=== PATIENT | female | born 1995 | race Caucasian/White ===

== ENCOUNTER 2021-02-19 21:22 | Observation (INO) ==
[2021-02-19] MEDS ORDERED: AMPICILLIN/SULBACTAM SOD 3,000 MG in 0.9 % SODIUM CHLORIDE 100 ML IV STA (23:02)
[2021-02-19] MEDS ORDERED: SODIUM CHLORIDE 0.9% 1000ML 1,000 ML IV SCH (23:15)
[2021-02-19 23:20] LABS: Basophils # (auto) 0.01 K/uL (0-0.2); Basophils % (auto) 0.1 %; Eosinophils # (auto) 0.18 K/uL (0-0.5); Eosinophils % (auto) 1.5 %; Hematocrit (blood only) 40.7 % (37-47); Hemoglobin 14.1 g/dL (12.0-16.0); Immature Granulocytes # (auto) 0.02 K/uL (0.00-0.02); Immature Granulocytes % (auto) 0.2 %; Lymphocytes # (auto) 2.15 K/uL (1.2-3.4); Mean Corpuscular Hemoglobin 32.3 pg (25-34); Mean Corpuscular Hgb Conc 34.6 g/dL (32-36); Mean Corpuscular Volume 93.3 fL (80-100); Mean Platelet Volume 10.2 fL (7.4-10.4); Monocytes # (auto) 0.98 K/uL (0.11-0.59); Monocytes % (auto) 8.2 %; Platelet Count 287 K/uL (130-400); RDW Coefficient of Variation 12.6 % (11.5-14.5); RDW Standard Deviation 42.8 fL (36.4-46.3); Red Blood Count 4.36 M/uL (4.2-5.4); White Blood Count 11.94 K/uL (4.8-10.8)
[2021-02-19 23:37] LABS: Alanine Aminotransferase 21 U/L (12-78); Albumin Level 3.9 gm/dl (3.4-5.0); Aspartate Aminotransferase 19 U/L (15-37); BUN Creatinine Ratio 14.8 (10-20); Blood Urea Nitrogen 7 mg/dl (7-18); Calcium 8.5 mg/dl (8.5-10.1); Carbon Dioxide 28 mmol/L (21-32); Chloride 106 mmol/L (98-107); Creatinine Clr Calc Pharmacy 174.5 ml/min; Est GFR (African American) > 150.0 ml/min; Est GFR (Non-African American) 137.3 ml/min; Glucose 77 mg/dl (70-99); Potassium 3.4 mmol/L (3.5-5.1); Sodium 138 mmol/L (136-145)
[2021-02-19 23:40] LABS: Albumin Globulin Ratio 1.1 (0.9-2); Alkaline Phosphatase 66 U/L (45-117); Bilirubin,Total 0.6 mg/dl (0.2-1); Globulin 3.6 gm/dl (2.5-4.0); Total Protein 7.5 gm/dl (6.4-8.2)
[2021-02-19 23:53] LABS: Pregnancy Test, Serum Negative (Negative)
[2021-02-20] MEDS ORDERED: KETOROLAC TROMETHAMINE 15 MG/ML VIAL IV STA (00:02)
[2021-02-20] MEDS ORDERED: AMPICILLIN/SULBACTAM SOD 3,000 MG in 0.9 % SODIUM CHLORIDE 100 ML IV SCH (00:31)
--- NOTE | 2021-02-20 00:35 | History & Physical Report ---
Date of Service February 20, 2021 Assessment & Plan (1) Dog bite of extremity: Plan: 25yo female with no significant past medical or surgical history presenting with a dog bite to the left hand that occurred yesterday. She has worsening swelling, redness with draining pus. No systemic signs or symptoms of infection. Patient afebrile, HD stable, nontoxic in appearance -Observation to medical -Follow cultures -Paul area of redness daily -Unasyn 3gm IV q 6 hours -Tylenol PRN -If patient fails to improve will consider surgical consultation Plan: F/E/N - Heplock. Electrolytes WNL. Regular diet as tolerated Ppx - Low risk for DVT Code - Full Dispo - Observation to medical History of Present Illness Chief Complaint: Dog Bite Primary Care Provider: NO PCP Merle Mijares is a 25yo female with no significant past medical or surgical history presenting with bite on her left hand from her dog. Patient's dog has been ill for the last 3-4 days - hasn't been eating, unable to walk. Patient was examining her dog and pressed on his abdomen and the dog snapped at her and bit her in the left hand. The dog is UTD with all injections and is otherwise healthy. Patient had worsening redness and swelling of her left hand which prompted her to come to the ER. She denies fever, chills, nausea, vomiting, CP, SOB, malaise. No additional complaints at this time. Pus was expressed from the wound on the left hand by JOSE Wilkes in the ER. ER Course: Unasyn, Ketorlac, NSS Allergies Allergy/AdvReac Type Severity Reaction Status Date / Time No Known Allergies Allergy Unverified 02/20/21 00:49 Home Medications Medication Instructions Recorded Confirmed Type ibuprofen 200 mg tablet 600 mg PO Q6H PRN 02/20/21 02/20/21 History multivitamin 1 tab PO DAILY 02/20/21 02/20/21 History Past Med/Surg History Medical History (Updated 02/20/21 @ 01:28 by Danielle Meek DO) No significant past medical history Surgical History (Updated 02/20/21 @ 01:23 by Danielle Meek DO) History of umbilical hernia repair Family History (Updated 02/20/21 @ 01:24 by Danielle Meek DO) Other Cancer Diabetes Social History Smoking Status: Never smoker Preferred Language: Albanian Feels Safe at Home: Yes Review of Systems Review of Systems: All systems reviewed & are unremarkable except as noted in HPI & below Patient feels cold while in the ER Physical Exam Physical Exam: General: patient resting comfortably, NAD, non-toxic in appearance, AA&O x 4 Skin: warm, dry, no rash HEENT: NC/AT, PERRL, EOMI, anicteric sclera, conjunctiva without injection, external ear normal to inspection and nontender, nares patent, moist mucus membranes, dentition intact, no oropharyngeal lesions, neck supple, trachea midline, no LAD, no thyromegaly, no JVD Heart: +S1/S2, regular, no m/r/g Lungs: equal air entry bilaterally, no rales/rhonchi/wheezes Abd: +BS, soft, NT/ND, no masses/organomegaly/ascites Ext: warm, 2+ pulses in UE/LE bilaterally, no clubbing/cyanosis or edema. Left hand with small wound at area of MCP with small amount of pus draining, redness and warmth of dorsum of hand to wrist. No lymphangitic streaking. No crepitus, bullae. Limited mobility of hand due to swelling. Neuro: nonfocal, patient AA&O x 4, speech intact, no facial droop, moving all extremities on command with equal strength 5/5 Results & Data Results & Data ([facility]) Vital Signs (Past 12 Hours) Vital Signs Temp Pulse Pulse Resp BP BP Pulse Ox 02/19/21 22:52 97 H 16 129/76 98 02/19/21 21:31 36.8 C 108 H 18 127/78 99 Laboratory Results Laboratory Results WBC 11.94 K/uL (4.8-10.8) H 02/19/21 23:12 RBC 4.36 M/uL (4.2-5.4) 02/19/21 23:12 Hgb 14.1 g/dL (12.0-16.0) 02/19/21 23:12 Hct 40.7 % (37-47) 02/19/21 23:12 MCV 93.3 fL (80-100) 02/19/21 23:12 MCH 32.3 pg (25-34) 02/19/21 23:12 MCHC 34.6 g/dL (32-36) 02/19/21 23:12 RDW Std Deviation 42.8 fL (36.4-46.3) 02/19/21 23:12 RDW Coeff of Antione 12.6 % (11.5-14.5) 02/19/21 23:12 Plt Count 287 K/uL (130-400) 02/19/21 23:12 MPV 10.2 fL (7.4-10.4) 02/19/21 23:12 Immature Gran % (Auto) 0.2 % 02/19/21 23:12 Neut % (Auto) 72.0 % 02/19/21 23:12 Lymph % (Auto) 18.0 % 02/19/21 23:12 Adams % (Auto) 8.2 % 02/19/21 23:12 Eos % (Auto) 1.5 % 02/19/21 23:12 Baso % (Auto) 0.1 % 02/19/21 23:12 Neut # (Auto) 8.60 K/uL (1.4-6.5) H 02/19/21 23:12 Lymph # (Auto) 2.15 K/uL (1.2-3.4) 02/19/21 23:12 Adams # (Auto) 0.98 K/uL (0.11-0.59) H 02/19/21 23:12 Eos # (Auto) 0.18 K/uL (0-0.5) 02/19/21 23:12 Baso # (Auto) 0.01 K/uL (0-0.2) 02/19/21 23:12 Immature Gran # (Auto) 0.02 K/uL (0.00-0.02) 02/19/21 23:12 Sodium 138 mmol/L (136-145) 02/19/21 23:12 Potassium 3.4 mmol/L (3.5-5.1) L 02/19/21 23:12 Chloride 106 mmol/L (98-107) 02/19/21 23:12 Carbon Dioxide 28 mmol/L (21-32) 02/19/21 23:12 Anion Gap 4.0 (3-11) 02/19/21 23:12 BUN 7 mg/dl (7-18) 02/19/21 23:12 Creatinine 0.46 mg/dl (0.6-1.2) L 02/19/21 23:12 Est Cr Clr Drug Dosing 174.5 ml/min 02/19/21 23:12 Est GFR ( Amer) > 150.0 ml/min 02/19/21 23:12 Est GFR (Non-Af Amer) 137.3 ml/min 02/19/21 23:12 BUN/Creatinine Ratio 14.8 (10-20) 02/19/21 23:12 Glucose 77 mg/dl (70-99) 02/19/21 23:12 Calcium 8.5 mg/dl (8.5-10.1) 02/19/21 23:12 Total Bilirubin 0.6 mg/dl (0.2-1) 02/19/21 23:12 AST 19 U/L (15-37) 02/19/21 23:12 ALT 21 U/L (12-78) 02/19/21 23:12 Alkaline Phosphatase 66 U/L (45-117) 02/19/21 23:12 Total Protein 7.5 gm/dl (6.4-8.2) 02/19/21 23:12 Albumin 3.9 gm/dl (3.4-5.0) 02/19/21 23:12 Globulin 3.6 gm/dl (2.5-4.0) 02/19/21 23:12 Albumin/Globulin Ratio 1.1 (0.9-2) 02/19/21 23:12 HCG, Qual Negative (Negative) 02/19/21 23:12 COVID-19 Eval Order Covid19 at [facility] 02/20/21 00:03 Code Status & VTE Plan VTE Prophylaxis Plan VTE Prophylaxis will be ordered: No PG Care Time/CCT Total # of Minutes Spent Total Time Spent with Patient: Total time spent is greater than 50% in coordination of care (as documented) at patient's floor/unit and/or counseling patient: Coding Level of Care Code 38479 Initial Inpt Care Lvl 2 Diagnoses Dog bite of extremity
--- NOTE | 2021-02-20 01:48 | Emergency Department Note ---
History of Present Illness General Chief complaint: Animal Bite Stated complaint: INFECTED DOG BITE Time Seen by Provider: 02/19/21 22:56 History of Present Illness Maximum Pain Intensity: 7 This 25 yo presents to the ER complaining of dog bite of hand yesterday Location: Hand Quality: Throbbing and red Severity: Moderate Duration: Yesterday Timing: Yesterday Context: Symptoms got worse and patient came in Modifying factors: better with rest; worse with activity Tetanus is current. Patient's own dog bit her. Rabies vaccine is current. Patient states it is painful for move her second and third fingers. The redness is spread. Patient denies fevers, flulike illness, vomiting, diarrhea. Home Medications Medication Instructions Recorded Confirmed Type ibuprofen 200 mg tablet 600 mg PO Q6H PRN 02/20/21 02/20/21 History multivitamin 1 tab PO DAILY 02/20/21 02/20/21 History Allergies Allergy/AdvReac Type Severity Reaction Status Date / Time No Known Allergies Allergy Unverified 02/20/21 00:49 Past Med/Surg History Medical History No significant past medical history Surgical History History of umbilical hernia repair Family History Other Cancer Diabetes Social History Smoking Status: Never smoker Preferred Language: Polish Feels Safe at Home: Yes Review of Systems A total of 10 systems reviewed and were otherwise negative Physical Exam Vital Signs Vital Signs - 24 hr 02/19/21 21:31 02/19/21 22:52 Temperature 36.8 C Temperature Source Temporal Artery Scan Pulse Rate 108 H Pulse Rate [Finger] 97 H Respiratory Rate 18 16 Respiratory Effort / Characteristics Non-Labored Spontaneous Respiratory Depth Normal Normal Respiratory Pattern Regular Blood Pressure 127/78 Blood Pressure [Right Arm] 129/76 Blood Pressure Mean 94 Blood Pressure Mean [Right Arm] 93 Blood Pressure Position Sitting Pulse Oximetry 99 98 Oxygen Delivery Method Room Air Room Air Sepsis Recent Fever Within 48 Hours No Sepsis New/Unexplained Change in Mental Status N/A Sepsis Action Taken by Nursing No Action Required VITALS: Vitals are noted on the nurse's note and reviewed by myself. Vital signs stable. GENERAL: Pleasant female, in no acute distress, nondiaphoretic, well-developed well-nourished. SKIN: Capillary reflex less than 2 seconds. Left hand with dog bite present with draining purulent material with surrounding erythema. HEENT: Normocephalic. PERRLA. EOMI. Nares patent. Mucous membranes moist. Neck is supple without nuchal rigidity. HEART: Regular rate and rhythm without murmurs gallops or rubs. LUNGS: Clear to auscultation bilaterally without wheezes, rales or rhonchi. No retractions or accessory muscle use. ABDOMEN: Positive bowel sounds x 4. Normal tympanic percussion. Soft, nontender, without masses or organomegaly. Haskins sign negative. No guarding or rebound tenderness. MUSCULOSKELETAL: No gross musculoskeletal defects. Left hand tender to palpation over the dorsal aspect and second and third fingers. Patient has pain with full flexion extension of these fingers. All the fingers are nontender to palpation. No lymphangitis. Wound culture taken and sent. NEURO: Patient was alert and oriented to person place and time. Normal sensation to light and sharp touch. No focal neurological deficits. Course Administered Medications Discontinued Medications Sodium Chloride (Nss 1000ml) 1,000 mls @ 999 mls/hr IV .Q1H1M MILAGROS Stop: 02/20/21 00:15 Last Admin: 02/19/21 23:48 Dose: 999 mls/hr Documented by: [id number] Ampicillin Sodium/Sulbactam Sodium 3,000 mg/ Sodium Chloride 108 mls @ 200 mls/hr IV NOW STA Stop: 02/19/21 23:34 Last Infusion: 02/20/21 00:35 Dose: 0 mls/hr Documented by: [id number] Admin: 02/19/21 23:48 Dose: 200 mls/hr Documented by: [id number] Ketorolac Tromethamine (Ketorolac Tromethamine 15 Mg/Ml Vial) 10 mg IV NOW STA Stop: 02/20/21 00:03 Last Admin: 02/20/21 00:11 Dose: 10 mg Documented by: [id number] Medical Decision Making Medical Records Attestation: I reviewed the patient's medical records. Home Medications Current Medication List: was personally reviewed by me Laboratory Data Attestation: I reviewed the patient's lab results. Result diagrams: 02/19/21 23:12 02/19/21 23:12 Lab Results 02/19/21 02/19/21 02/19/21 Range/Units 23:12 23:12 23:12 WBC 11.94 H (4.8-10.8) K/uL RBC 4.36 (4.2-5.4) M/uL Hgb 14.1 (12.0-16.0) g/dL Hct 40.7 (37-47) % MCV 93.3 (80-100) fL MCH 32.3 (25-34) pg MCHC 34.6 (32-36) g/dL RDW Std Deviation 42.8 (36.4-46.3) fL RDW Coeff of Antione 12.6 (11.5-14.5) % Plt Count 287 (130-400) K/uL MPV 10.2 (7.4-10.4) fL Immature Gran % (Auto) 0.2 % Neut % (Auto) 72.0 % Lymph % (Auto) 18.0 % [place] % (Auto) 8.2 % Eos % (Auto) 1.5 % Baso % (Auto) 0.1 % Neut # (Auto) 8.60 H (1.4-6.5) K/uL Lymph # (Auto) 2.15 (1.2-3.4) K/uL [place] # (Auto) 0.98 H (0.11-0.59) K/uL Eos # (Auto) 0.18 (0-0.5) K/uL Baso # (Auto) 0.01 (0-0.2) K/uL Immature Gran # (Auto) 0.02 (0.00-0.02) K/uL Sodium 138 (136-145) mmol/L Potassium 3.4 L (3.5-5.1) mmol/L Chloride 106 (98-107) mmol/L Carbon Dioxide 28 (21-32) mmol/L Anion Gap 4.0 (3-11) BUN 7 (7-18) mg/dl Creatinine 0.46 L (0.6-1.2) mg/dl Est Cr Clr Drug Dosing 174.5 ml/min Est GFR ( Amer) > 150.0 ml/min Est GFR (Non-Af Amer) 137.3 ml/min BUN/Creatinine Ratio 14.8 (10-20) Glucose 77 (70-99) mg/dl Calcium 8.5 (8.5-10.1) mg/dl Total Bilirubin 0.6 (0.2-1) mg/dl AST 19 (15-37) U/L ALT 21 (12-78) U/L Alkaline Phosphatase 66 (45-117) U/L Total Protein 7.5 (6.4-8.2) gm/dl Albumin 3.9 (3.4-5.0) gm/dl Globulin 3.6 (2.5-4.0) gm/dl Albumin/Globulin Ratio 1.1 (0.9-2) HCG, Qual Negative (Negative) COVID-19 Eval Order 02/20/21 Range/Units 00:03 WBC (4.8-10.8) K/uL RBC (4.2-5.4) M/uL Hgb (12.0-16.0) g/dL Hct (37-47) % MCV (80-100) fL MCH (25-34) pg MCHC (32-36) g/dL RDW Std Deviation (36.4-46.3) fL RDW Coeff of Anitone (11.5-14.5) % Plt Count (130-400) K/uL MPV (7.4-10.4) fL Immature Gran % (Auto) % Neut % (Auto) % Lymph % (Auto) % [place] % (Auto) % Eos % (Auto) % Baso % (Auto) % Neut # (Auto) (1.4-6.5) K/uL Lymph # (Auto) (1.2-3.4) K/uL [place] # (Auto) (0.11-0.59) K/uL Eos # (Auto) (0-0.5) K/uL Baso # (Auto) (0-0.2) K/uL Immature Gran # (Auto) (0.00-0.02) K/uL Sodium (136-145) mmol/L Potassium (3.5-5.1) mmol/L Chloride (98-107) mmol/L Carbon Dioxide (21-32) mmol/L Anion Gap (3-11) BUN (7-18) mg/dl Creatinine (0.6-1.2) mg/dl Est Cr Clr Drug Dosing ml/min Est GFR ( Amer) ml/min Est GFR (Non-Af Amer) ml/min BUN/Creatinine Ratio (10-20) Glucose (70-99) mg/dl Calcium (8.5-10.1) mg/dl Total Bilirubin (0.2-1) mg/dl AST (15-37) U/L ALT (12-78) U/L Alkaline Phosphatase (45-117) U/L Total Protein (6.4-8.2) gm/dl Albumin (3.4-5.0) gm/dl Globulin (2.5-4.0) gm/dl Albumin/Globulin Ratio (0.9-2) HCG, Qual (Negative) COVID-19 Eval Order Covid19 at [facility] Imaging Data Attestation: I personally reviewed and interpreted this imaging study as follows: MDM Narrative Prior records reviewed and summarized as above. Triage Nursing notes reviewed. Additional history obtained from friend. The patient's history was concerning for swelling and redness of the skin. Differential diagnosis: Etiologies such as infected dog bite, cellulitis, abscess, MRSA infection, DVT, necrotizing fasciitis, dermatitis, drug eruption, as well as others were entertained.. Physical examination: The physical examination was consistent with infected dog bite ER treatment provided: Unasyn, Toradol, IV fluids, wound culture sent On reassessment the patient felt better. Diagnostics interpreted by me: The labs revealed wound culture pending. Leukocytosis Imaging studies: Hand x-ray with no acute fracture, dislocation or effusion per my interpretation Consultation: A consultation was placed with the hospitalist. The case was discussed and diagnostics were reviewed. The patient was evaluated in the ER for further treatment. This appears to be infected dog bite. This is gotten much worse. There is pus draining. Patient start IV antibiotics. Medicine was consulted. She will be evaluated for admission. By the evaluation outlined above emergent etiologies such as necrotizing fasciitis, DVT, as well as others were deemed relatively unlikely. The pt informed about the findings as listed above. All questions were answered and pleased with the treatment. The chart was completed utilizing [employer] voice recognition software. Grammatical errors, random word insertions, pronoun errors, and incomplete s entences are an occassional consequence of this system due to software limitations, ambient noise, and hardware issues. Any formal questions or concerns about the content, text, or information contained within the body of this dictation should be directly addressed to the physician volunteer services assistant for cl arification. Impression & Plan Infected dog bite of hand Discharge Plan Visit Data Chief Complaint: Animal Bite Stated Complaint: INFECTED DOG BITE ED Provider: Glenroy Guzman ED Midlevel Provider: Iva Wilkes Discharge Problem: Infected dog bite of hand Patient Disposition: Admitted As Inpatient Condition: Good Forms Stand Alone Forms: [facility] Matchbook Prescriptions Prescriptions: No Action multivitamin Tablet 1 tab PO DAILY RF: 0 ibuprofen 200 mg Tablet 600 mg PO Q6H PRN (Reason: Pain) RF: 0 Referrals Referrals: PCP,NO [Primary Care Provider] -
[2021-02-20] MEDS ORDERED: ACETAMINOPHEN 325 MG TAB ONE (02:55)
[2021-02-20] MEDS ORDERED: KETOROLAC TROMETHAMINE 15 MG/ML VIAL IV ONE (03:24)
[2021-02-20] MEDS: AMPICILLIN/SULBACTAM SOD 3,000 MG in 0.9 % SODIUM CHLORIDE 100 ML IV SCH ×4 (05:46→23:52)
[2021-02-20] MEDS ORDERED: SODIUM CHLORIDE 0.9% 500 ML IV SCH (06:45)
[2021-02-20] MEDS ORDERED: POTASSIUM CHLORIDE CRTAB 20 MEQ TABCR PO ONE (08:54)
--- NOTE | 2021-02-20 09:17 | XRay Report ---
XR hand LT min 3V routine CLINICAL HISTORY: dog bite COMPARISON: None FINDINGS: Alignment of the left hand is anatomic. There is no acute fracture. No radiopaque foreign bodies are identified. Carpal bones are intact. IMPRESSION: No acute fracture or radiopaque foreign body within the left hand. ACT 112: Negative or not required by law. Electronically signed by: Cesar Barrios M.D. 02/20/2021 9:15 AM
[2021-02-20] MEDS: ACETAMINOPHEN 325 MG TAB PO PRN ×2 (15:53→20:37)
--- NOTE | 2021-02-20 16:09 | Communication Note ---
Date of Service: February 20, 2021 Patient remains on Unasyn for empiric coverage following animal bite. Erythema and edema had improved following 2 doses of IV abx. She is feeling well overall; will monitor lab work in the morning. Follow culture results; if patient remains afebrile & has ongoing clinical improvement, can transition to PO abx and discharge to home.
[2021-02-20] MEDS ORDERED: GADOBUTROL 7.5ML VIAL IV ONE (19:41)
[2021-02-21] MEDS: ACETAMINOPHEN 325 MG TAB PO PRN ×3 (01:31→11:37)
[2021-02-21 05:49] LABS: Basophils # (auto) 0.02 K/uL (0-0.2); Basophils % (auto) 0.2 %; Eosinophils % (auto) 1.9 %; Hematocrit (blood only) 39.6 % (37-47); Hemoglobin 13.3 g/dL (12.0-16.0); Immature Granulocytes # (auto) 0.03 K/uL (0.00-0.02); Immature Granulocytes % (auto) 0.3 %; Lymphocytes # (auto) 2.97 K/uL (1.2-3.4); Lymphocytes % (auto) 27.7 %; Mean Corpuscular Hemoglobin 31.7 pg (25-34); Mean Corpuscular Hgb Conc 33.6 g/dL (32-36); Mean Corpuscular Volume 94.3 fL (80-100); Mean Platelet Volume 10.1 fL (7.4-10.4); Monocytes # (auto) 0.93 K/uL (0.11-0.59); Monocytes % (auto) 8.7 %; Neutrophils # (auto) 6.58 K/uL (1.4-6.5); Neutrophils % (auto) 61.2 %; Platelet Count 284 K/uL (130-400); RDW Coefficient of Variation 12.7 % (11.5-14.5); RDW Standard Deviation 43.7 fL (36.4-46.3); White Blood Count 10.73 K/uL (4.8-10.8)
[2021-02-21] MEDS: AMPICILLIN/SULBACTAM SOD 3,000 MG in 0.9 % SODIUM CHLORIDE 100 ML IV SCH ×4 (05:56→23:25)
[2021-02-21 06:27] LABS: BUN Creatinine Ratio 19.2 (10-20); Blood Urea Nitrogen 7 mg/dl (7-18); Calcium 8.5 mg/dl (8.5-10.1); Carbon Dioxide 27 mmol/L (21-32); Chloride 108 mmol/L (98-107); Creatinine Clr Calc Pharmacy 207.7 ml/min; Est GFR (African American) > 150.0 ml/min; Glucose 78 mg/dl (70-99); Potassium 3.5 mmol/L (3.5-5.1); Sodium 138 mmol/L (136-145)
--- NOTE | 2021-02-21 08:57 | Magnetic Resonance Report ---
MRI OF THE LEFT HAND WITH AND WITHOUT CONTRAST CLINICAL HISTORY: Dog bite; evaluate for worsening infection. COMPARISON STUDY: Left hand radiographs February 19, 2021. TECHNIQUE: Utilizing a 1.5 Fay magnet and dedicated coil, multiplanar, multiecho imaging of the lef t hand was performed pre and postcontrast administration. Intravenous injection of Gadavist was uneve ntful. FINDINGS: No marrow edema within the left hand is identified to suggest osteomyelitis. There is exten sive dorsal subcutaneous edema of the left hand and wrist. There is associated enhancement. Edema and enhancement extends along the dorsal and palmar aspects of the left third finger. Enhancement extend s along several extensor tendons however there is no increased fluid within the tendon sheaths. There is no rim-enhancing fluid collection to suggest an abscess. Note is made of a nonenhancing 7 mm focu s along the dorsal medial aspect of the base of the left third finger. This could reflect a small hem atoma. Carpal bones are intact. Visualized portions of the flexor and extensor tendons are intact. Th ere is no MRI evidence for septic arthritis. IMPRESSION: 1. Extensive dorsal subcutaneous edema and enhancement of the left wrist and hand which extends into the left third finger. This suggest cellulitis. No rim-enhancing fluid collection to suggest an absce ss. Enhancement extends along several extensor tendon sheaths without increased fluid within these te ndon sheaths. 2. No evidence for osteomyelitis within the left wrist or hand. 3. 7 mm nonenhancing focus along the dorsal medial aspect of the base of the left third finger. This is likely at site of wound and could reflect a small hematoma. ACT 112: Negative or not required by law. Electronically signed by: Cesar Barrios M.D. 02/21/2021 8:56 AM
--- NOTE | 2021-02-21 09:29 | Hospitalist Progress Note ---
Date of Service February 21, 2021 Assessment & Plan (1) Infectious tenosynovitis: Plan: 25yo female with no significant past medical or surgical history presenting with a dog bite to the left hand that occurred yesterday. She has worsening swelling, redness with draining pus. No systemic signs or symptoms of infection. Patient afebrile, HD stable, nontoxic in appearance -Continue on medical for continued need for intravenous antibiotics -Follow cultures, gram stain showed no organism, awaiting culture results -Unasyn 3gm IV q 6 hours - antibiotic choice based on dog bite, no need to extend coverage given overal improvement -Tylenol PRN -Consult ortho (2) Dog bite of extremity: Plan: as above Plan: F/E/N - Heplock. Electrolytes WNL. Regular diet as tolerated Ppx - Low risk for DVT Code - Full Dispo - Observation to medical Admission and Anticipated Discharge Date Admission Date: February 20, 2021 Subjective No fever or chills. Erythema overal improving, tracking up arm in the night but will improve in the morning. Pain on passive flexion and extension of third finger. MRI showing tenosynovitis. Review of Systems Review of Systems: All systems reviewed & are unremarkable except as noted in HPI & below Physical Exam Constitutional: WD/WN, vitals as above Eyes: + anicteric sclerae; normal pupil size ENMT: external ear and nose normal, oropharynx normal Respiratory: normal respiratory effort, lungs clear to auscultation Cardiovascular: Rate/Rhythm: regular rate and regular rhythm Heart Sounds: no murmur Skin: Erythema and swelling surrounding base of left third digit with eschar, improved from marked area, no fluctuance. Painful passive ext/flex of 3rd digit. Psychiatric: A+Ox3, euthymic affect Results & Data Results & Data ([facility]) Vital Signs (Past 12 Hours) Vital Signs Temp Pulse Resp BP Pulse Ox 02/21/21 08:28 36.8 C 79 16 105/72 98 02/20/21 22:34 36.9 C 76 16 107/77 97 PG Care Time/CCT Total # of Minutes Spent Total Time Spent with Patient: Total time spent is greater than 50% in coordination of care (as documented) at patient's floor/unit and/or counseling patient: Coding Level of Care Code 67344 Subseq Obs Care Lvl 2 Diagnoses Dog bite of extremity Infectious tenosynovitis M65.10
--- NOTE | 2021-02-21 11:16 | Orthopedic Consultation ---
Date of Consultation February 21, 2021 Assessment & Plan (1) Infected dog bite of hand: Infected left hand bite wound. Continue current IV antibiotics for now. Continue elevation of the left hand. MRI not showing any definite abscesses and or increased fluid collection inside the tendon sheaths. Likely hematoma noted at the bite wound. Case will be discussed with Dr. Montgomery. Although I do not think she is out of the díaz yet, I do not believe she will need surgical intervention today. C ontinue with the IV antibiotics and elevation and will watch for now. Dr. Montgomery to weigh in later today for any further input. History of Present Illness Reason for Consultation: Left Hand Infection Attending Physician: Loco Doan MD History of Present Illness 25-year-old female who was admitted yesterday for infection of the left hand secondary to a dog bite. Patient states that the dog bite occurred on Monday late night. She states that her dog had been ill for 3-4 days and was not eating. He was up in the middle the night having problems and she was trying to see where he might be hurting. As she was examining him, she feels she may have hit the area that might have been tender causing him to lash out and bite her. She noticed an open wound near the third MP joint which she cleaned. She ended up taking her dog to the acquisition editor the following morning and getting him taken care of. Over the day she began noticing increased pain and swelling in the left hand to the point where she was having some drainage from the bite wound and she ended up coming to the emergency room to be evaluated. She was thusly admitted for IV antibiotics. We have been asked to see her for her left hand infection. Currently she states that the hand is a little bit better than when she first came in. She has noticed some decreased erythema. She continues with pain in the hand. She denies any fevers or chills, nausea or vomiting prior to coming to the emergency room. Allergies Allergy/AdvReac Type Severity Reaction Status Date / Time No Known Allergies Allergy Unverified 02/20/21 00:49 Home Medications Medication Instructions Recorded Confirmed Type ibuprofen 200 mg tablet 600 mg PO Q6H PRN 02/20/21 02/20/21 History multivitamin 1 tab PO DAILY 02/20/21 02/20/21 History Patient History Medical History No significant past medical history Surgical History History of umbilical hernia repair Family History Other Cancer Diabetes Social History Smoking Status: Never smoker Hx Alcohol Use: Yes Hx Substance Use: No Preferred Language: Hungarian Communication Ability: Effective Geriatric Nurse Practitioner Required: No Beliefs That Will Affect Care: None Current Living Situation: Alone Feels Safe at Home: Yes Assistive Devices: None Review of Systems Review of Systems: All systems reviewed & are unremarkable except as noted in HPI & below Physical Exam Physical Exam: Examination, the patient has the left upper extremity on 1 pillow for elevation. She has noticeable swelling of the dorsum of her left hand and has some erythema around the second third and fourth MP joints. There is a marked line that was drawn on her hand on admission where her original erythema was. A lot of this has really resolved but still is around the dorsum of the hand near the MP joint. She has some very slight erythema just above the line on the dorsum of the wrist. She has a bite wound that is between the third and fourth MP joints. This is scabbed over and it is not draining at this time. She has moderate tenderness on palpation over this area of her 3rd MP joint/dorsum of hand area and webspace. I can take her thumb, index, and fifth fingers through gentle range of motion without discomfort. Third and fourth fingers have increased pain with passive dorsiflexion and flexion. She is unable to fully make a fist with her hand secondary to swelling and pain. She has better range of motion of the thumb,index, and fifth fingers. She denies any decrease sensation of any of the fingers at this time. She has good range of motion of her left wrist without discomfort. She denies any pain on palpation of the forearm going up to the elbow. She denies axillary pain at this time. Although her fingernails are painted, blanching of the fingertips does show good cap refill of less than 2 seconds. She has an area on the palmar aspect of her hand that was marked for erythema but the erythema has improved quite well. Again most of the pain on palpation is over the third and fourth MP joint areas and webspaces. Results & Data ([facility]) Vital Signs (Past 12 Hours) Vital Signs Temp Pulse Resp BP Pulse Ox 02/21/21 08:28 36.8 C 79 16 105/72 98 Laboratory Results 02/21/21 02/21/21 Range/Units 05:16 05:16 WBC 10.73 (4.8-10.8) K/uL RBC 4.20 (4.2-5.4) M/uL Hgb 13.3 (12.0-16.0) g/dL Hct 39.6 (37-47) % MCV 94.3 (80-100) fL MCH 31.7 (25-34) pg MCHC 33.6 (32-36) g/dL RDW Std Deviation 43.7 (36.4-46.3) fL RDW Coeff of Antione 12.7 (11.5-14.5) % Plt Count 284 (130-400) K/uL MPV 10.1 (7.4-10.4) fL Immature Gran % (Auto) 0.3 % Neut % (Auto) 61.2 % Lymph % (Auto) 27.7 % Karnes % (Auto) 8.7 % Eos % (Auto) 1.9 % Baso % (Auto) 0.2 % Neut # (Auto) 6.58 H (1.4-6.5) K/uL Lymph # (Auto) 2.97 (1.2-3.4) K/uL Karnes # (Auto) 0.93 H (0.11-0.59) K/uL Eos # (Auto) 0.20 (0-0.5) K/uL Baso # (Auto) 0.02 (0-0.2) K/uL Immature Gran # (Auto) 0.03 H (0.00-0.02) K/uL Sodium 138 (136-145) mmol/L Potassium 3.5 (3.5-5.1) mmol/L Chloride 108 H (98-107) mmol/L Carbon Dioxide 27 (21-32) mmol/L Anion Gap 3.0 (3-11) BUN 7 (7-18) mg/dl Creatinine 0.39 L (0.6-1.2) mg/dl Est Cr Clr Drug Dosing 207.7 ml/min Est GFR ( Amer) > 150.0 ml/min Est GFR (Non-Af Amer) 145.0 ml/min BUN/Creatinine Ratio 19.2 (10-20) Glucose 78 (70-99) mg/dl Calcium 8.5 (8.5-10.1) mg/dl Diagnostic Findings Patient: PIETER BETH Date: 02/20/21MR#: [id number]: [address] ID:[id number]: Date: 1995[facility] Zip: [place], [place] [address]Qjm: 25Location: 3ESex: FRoom/Bed: [id number] Phy: Loco Doan, MDDiagnosis: DOG BITE, LEFT HANDPri Phy: PCP,NOService Date: 02/20/21Fam Phy:Interpreting Phy: Cesar Barrios [facility] Phy: Danielle Meek D.O. Ordering Phy: Jane Moseley PA-C cc: ~ MRI OF THE LEFT HAND WITH AND WITHOUT CONTRAST CLINICAL HISTORY: Dog bite; evaluate for worsening infection. COMPARISON STUDY: Left hand radiographs February 19, 2021. TECHNIQUE: Utilizing a 1.5 Fay magnet and dedicated coil, multiplanar, multiecho imaging of the left hand was performed pre and postcontrast administration. Intravenous injection of Gadavist was uneventful. FINDINGS: No marrow edema within the left hand is identified to suggest osteomyelitis. There is extensive dorsal subcutaneous edema of the left hand and wrist. There is associated enhancement. Edema and enhancement extends along the dorsal and palmar aspects of the left third finger. Enhancement extends along several extensor tendons however there is no increased fluid within the tendon sheaths. There is no rim-enhancing fluid collection to suggest an abscess. Note is made of a nonenhancing 7 mm focus along the dorsal medial aspect of the base of the left third finger. This could reflect a small hematoma. Carpal bones are intact. Visualized portions of the flexor and extensor tendons are intact. There is no MRI evidence for septic arthritis. IMPRESSION: 1. Extensive dorsal subcutaneous edema and enhancement of the left wrist and hand which extends into the left third finger. This suggest cellulitis. No rim- enhancing fluid collection to suggest an abscess. Enhancement extends along several extensor tendon sheaths without increased fluid within these tendon sheaths. 2. No evidence for osteomyelitis within the left wrist or hand. 3. 7 mm nonenhancing focus along the dorsal medial aspect of the base of the left third finger. This is likely at site of wound and could reflect a small hematoma. (1) Infected dog bite of hand Encounter type: initial encounter Laterality: left Qualified Code(s): S61.452A - Open bite of left hand, initial encounter; L08.9 - Local infection of the skin and subcutaneous tissue, unspecified; W54.0XXA - Bitten by dog, initial encounter
[2021-02-21] MEDS ORDERED: oxyCODONE HCL IR 5 MG TAB (IMMEDIATE RELEASE) PO PRN (11:55)
[2021-02-21] MEDS ORDERED: KETOROLAC TROMETHAMINE 15 MG/ML VIAL IV PRN (13:18)
[2021-02-22 05:31] LABS: Basophils # (auto) 0.02 K/uL (0-0.2); Basophils % (auto) 0.2 %; Eosinophils # (auto) 0.13 K/uL (0-0.5); Eosinophils % (auto) 1.3 %; Hematocrit (blood only) 39.7 % (37-47); Hemoglobin 13.4 g/dL (12.0-16.0); Immature Granulocytes # (auto) 0.01 K/uL (0.00-0.02); Immature Granulocytes % (auto) 0.1 %; Lymphocytes # (auto) 2.81 K/uL (1.2-3.4); Lymphocytes % (auto) 28.4 %; Mean Corpuscular Hemoglobin 31.5 pg (25-34); Mean Corpuscular Hgb Conc 33.8 g/dL (32-36); Mean Corpuscular Volume 93.4 fL (80-100); Mean Platelet Volume 10.3 fL (7.4-10.4); Monocytes # (auto) 0.79 K/uL (0.11-0.59); Neutrophils # (auto) 6.13 K/uL (1.4-6.5); Platelet Count 313 K/uL (130-400); RDW Coefficient of Variation 12.5 % (11.5-14.5); RDW Standard Deviation 42.9 fL (36.4-46.3); Red Blood Count 4.25 M/uL (4.2-5.4); White Blood Count 9.89 K/uL (4.8-10.8)
[2021-02-22] MEDS: AMPICILLIN/SULBACTAM SOD 3,000 MG in 0.9 % SODIUM CHLORIDE 100 ML IV SCH (05:48)
--- NOTE | 2021-02-22 09:31 | Orthopedic Progress Note ---
Date of Service February 22, 2021 Assessment & Plan (1) Infected dog bite of hand: Plan: Infected left hand bite wound. Overall, great improvement of her infection. Continue current IV antibiotics for now. Continue elevation of the left hand. MRI not showing any definite abscesses and or increased fluid collection inside the tendon sheaths. Likely hematoma noted at the bite wound. Bite wound eschar deroofed yesterday by Dr. Montgomery and serous drainage expressed. Patient states that it has continued to feel better since that time. Cultures pending. Early culture with pinpoint growth and reincubating. Continue IV antibiotics at least for her noon dose and then, consider switching to oral antibiotics as per medicine. Orthopedics will sign off at this time. No surgical intervention needed. Plan for follow-up with Dr. Montgomery in 7 to 10 days. Admission and Anticipated Discharge Date Admission Date: February 20, 2021 Subjective Hospital day 2 Patient sleeping upon arrival to room but easily awoken. She states that the hand is feeling much better today. She has noticed less erythema and less swelling and states that she has better range of motion of her fingers. No new complaints. Physical Exam Physical Exam: On examination, dressing is taken off and shows the healing bite juan is improving. Overall her erythema has improved to the point that she only has a slight amount near the bite wound itself. Swelling is improved also over the dorsum of the hand. She has better range of motion of the fourth finger this morning and with much less pain with passive dorsiflexion. She continues to have some discomfort with passive dorsiflexion of the third finger but is noticeably better. Cap refill is less than 2 seconds. Sensation is intact. Results & Data ([facility]) Vital Signs (Past 12 Hours) Vital Signs Temp Pulse Resp BP Pulse Ox 02/22/21 07:15 36.7 C 71 16 109/74 97 02/21/21 22:25 36.9 C 78 16 103/69 99 (1) Infected dog bite of hand Encounter type: initial encounter Laterality: left Qualified Code(s): S61.452A - Open bite of left hand, initial encounter; L08.9 - Local infection of the skin and subcutaneous tissue, unspecified; W54.0XXA - Bitten by dog, initial encounter
[2021-02-22] MEDS ORDERED: AMOXICILLIN/CLAVULANATE 875 MG TAB PO SCH (12:00)
[2021-02-22] MEDS ORDERED: AMPICILLIN/SULBACTAM SOD 1,500 MG in 0.9 % SODIUM CHLORIDE 100 ML IV ONE (12:30)
--- NOTE | 2021-02-22 12:41 | Discharge Summary ---
Date of Service February 22, 2021 Admission HPI Per Admitting Provider Merle Mijares is a 25yo female with no significant past medical or surgical history presenting with bite on her left hand from her dog. Patient's dog has been ill for the last 3-4 days - hasn't been eating, unable to walk. Patient was examining her dog and pressed on his abdomen and the dog snapped at her and bit her in the left hand. The dog is UTD with all injections and is otherwise healthy. Patient had worsening redness and swelling of her left hand which prompted her to come to the ER. She denies fever, chills, nausea, vomiting, CP, SOB, malaise. No additional complaints at this time. Pus was expressed from the wound on the left hand by JOSE Wilkes in the ER. ER Course: Unasyn, Ketorlac, NSS Principal Diagnosis Dog bite Discharge Exam Constitutional: WD/WN, vitals as above Eyes: + anicteric sclerae; normal pupil size ENMT: external ear and nose normal, oropharynx normal Respiratory: normal respiratory effort, lungs clear to auscultation Cardiovascular: Rate/Rhythm: regular rate and regular rhythm Heart Sounds: no murmur Skin: singnificantly decreased erythema and swelling surrounding base of left third digit with eschar, when compared from marked area, no fluctuance. Decreased pain on passive ext/flex of 3rd digit. Psychiatric: A+Ox3, euthymic affect Discharge Data Allergies Allergy/AdvReac Type Severity Reaction Status Date / Time No Known Allergies Allergy Unverified 02/20/21 00:49 Consultations 02/20/21 00:02 ED Decision to Admit Stat 02/21/21 09:28 Consult Orthopedic Surgery Routine Ordered Studies 02/20/21 18:08 MR fidel LT wo/w con Urgent Hospital Course (1) Infectious tenosynovitis: 25yo female with no significant past medical or surgical history presenting with a dog bite to the left hand that occurred yesterday. She has worsening swelling, redness with draining pus. No systemic signs or symptoms of infection. Patient afebrile, HD stable, nontoxic in appearance -Continue on medical for continued need for intravenous antibiotics -Follow cultures, gram stain showed no organism, awaiting culture results -Unasyn 3gm IV q 6 hours - antibiotic choice based on dog bite, no need to extend coverage given overal improvement -Tylenol PRN -Consult ortho: appreciate input Patient will continue with oral antibiotics: augmentin BID. First dose prior to discharge with IV dose given of Unasyn. Patient will followup with ortho in 7-10 days. (2) Dog bite of extremity: as above F/E/N - Heplock. Electrolytes WNL. Regular diet as tolerated Total Time Total Time Spent Total Time Spent (In Minutes): 32 Discharge Plan Discharge Items Patient Disposition: Home - Self-Care Reason For Visit: DOG BITE, LEFT HAND Discharge Diagnosis: Dog bite Condition on Discharge: Good Activity: Resume your previous activity Non-emergency contact: Primary Care Provider Call non-emergency contact if: you have any medication questions Follow-up/Referrals: Neri Grier DO [Physician] - 02/25/21 3:00 pm (DR. GRIER IS [facility], [facility] , [place], [place]. THE TELEPHONE NUMBER IS [phone].) Benoit Montgomery DO [Surgeon] - 03/01/21 10:45 am (Follow-up in 7 to 10 days for recheck) Diet: Regular Addtl Attending Provider Instructions: FOLLOWUP with your PCP. Continue antibiotics for 14 more days. Addtl Casing Material Weigher Provider Instructions: You may shower when the wound on your hand is closed. Keep the wound covered until then with a waterproof covering when you do shower. Do gentle range of motion exercises of the fingers regularly. No heavy lifting for a week, then lifting as tolerated. Follow-up with Dr. Montgomery in 7 to 10 days for recheck. Please call for appointment. [phone] Pending Studies at Discharge: No Stand-Alone Forms: My [facility] [employer] [facility], Smoking Cessation Medications and DC Order Prescriptions: New acetaminophen 325 mg Tablet 650 mg PO Q4H PRN (Reason: fever or pain) Qty: 30 RF: 0 amoxicillin-pot clavulanate [Augmentin] 875-125 mg Tablet 1 tab PO BIDM Qty: 28 RF: 0 Continued multivitamin Tablet 1 tab PO DAILY RF: 0 ibuprofen 200 mg Tablet 600 mg PO Q6H PRN (Reason: Pain) RF: 0 Discharge Orders: Discharge Order (Routine); Ordered 02/22/21 Ordered By: Willie Painting/Other Patient Handouts: Animal Bites and Scratches, ED Animal Bite (Gene ral) Admission Data Admit Date/Time: 02/20/21 00:31 Attending Provider: Willie Ogden Admit Provider: Danielle Meek Primary Care Provider: PCP,NO Other Providers: Danielle Meek ; Benoit Montgomery Other Interventions: Discharge Summary Assessment (RN) Last Done: 02/22/21 14:03 Coding Level of Care Code 73921 OBS Care - Discharge Diagnoses Infectious tenosynovitis M65.10 Dog bite of extremity
== END 2021-02-22 14:29 | disposition home or self-care (01) ==
LOC: ED 21:22 → 3E 21:22 → SUATTDRO 02-20 00:31 → 3E 02-20 02:21